=== PATIENT | male | born 1995 | race American Indian/Alaskan Native ===

== ENCOUNTER 2017-09-01 03:30 | Emergency (ER) | payer OTHER ==
[2017-09-01 07:44] VITALS: BP 109/52
[2017-09-01] MEDS ORDERED: TYLENOL PO ONE (08:07)
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
== END 2017-09-01 09:28 | disposition home or self-care (01) ==
LOC: ED 03:30
DX: R51 Headache (principal); M54.2 Cervicalgia; V49.49XA Driver injured in collision with other motor vehicles in traffic accident, initial encounter; Y93.89 Activity, other specified; Y99.8 Other external cause status; Y92.488 Other paved roadways as the place of occurrence of the external cause
CPT/HCPCS: 70450; 99283